=== PATIENT | male | born 1995 | race Caucasian/White ===

== ENCOUNTER → 2023-10-30 08:11 | Emergency (ER) | payer OTHER, SELFPAY ==
[2023-10-30 08:12] VITALS: BP 120/83
[2023-10-30 08:32] VITALS: BMI 23.0
[2023-10-30 08:36] VITALS: BP 134/76
--- NOTE | 2023-10-30 08:48 | ED.GENMED ---
History of Present Illness
General
Chief Complaint: Chest Pain
Source: patient
Time Seen by Provider: 10/30/23 08:32
History of Present Illness
History of Present Illness:
27-year-old male with no significant past medical history presenting the emergency department for evaluation after waking this morning and felt a little tightness around his chest so he decided to go outside to have a cigarette but this did not
relieve his symptoms so decided to come to the ER. On the way here patient states he had increasing chest tightness and palpitations prompting them to call EMS who brought the patient here for further evaluation. Upon arrival to the ER patient's
symptoms are fully resolved and he states he is feeling much better. Significant other states that patient did tell her that symptoms seem to be worse while he was standing. Patient denies any fevers, chills, rigors, nausea, vomiting, bowel
changes or urinary symptoms. Denies any history of similar. Social history was noted for tobacco/cigarette use as well as weekend drinking. Patient states he did not drink last night but did have a few alcoholic beverages on Tuesday.
Phy Exam
Physical Exam
Physical Exam:
GENERAL: Alert , in no apparent distress
EYE: conjunctiva clear
NECK: Supple, no significant adenopathy.
ENT: o/p clr, mmm.
CARDIAC: Regular rate and rhythm
LUNGS: Clear breath sounds bilaterally, no acute respiratory distress, no wheezes/rales/rhonchi
ABDOMEN: Soft, non-tender, non-distended
NEUROLOGICAL: Alert and oriented
SKIN: Warm and dry, skin intact.
MUSCULOSKELETAL: well perfused.
PSYCH: Normal and appropriate interaction.
Scores
Heart Failure Risk
Heart Failure Risk Score: Not Applicable
Heart Score for Chest Pain Patients
STEMI patient?: No
History: Slightly or Non-Suspicious
ECG: Normal
Age: </= 45 years
Risk Factors: 1 or 2 Risk Factors
Troponin: </= Normal Limit
Heart Score for Chest Pain Patients: 1
Heart Score Risk: 2.5% MACE over next 6 weeks
Withdrawal Assessment of Alcohol
Withdrawal Assessment Completed?: Not applicable
Course
Orders/Labs/Results
Orders:
Orders
10/30/23 08:16
EKG [Electrocardiogram (*1)] Urgent
Reason for Study: Chest Pain
EKG- Treatment ONCE
10/30/23 08:34
CMP [Comprehensive Metabolic Panel] Urgent
Complete Blood Count/With Diff Urgent
Troponin I Urgent
Abnormal Lab Results
10/30/23
08:34
RBC 4.66 L 10^6/uL
(4.70-6.10)
MCH 32.0 H pg
(27.0-31.0)
Immature Gran % 0.6 H %
(0-0.5)
Glucose 112 H mg/dl
(70-99)
10/30/23 08:34
10/30/23 08:34
Vital Signs
Initial and Last Documented VS:
Initial Vital Signs
Temp Pulse Resp BP Pulse Ox
99.0 F 84 19 120/83 99
10/30/23 08:12 10/30/23 08:12 10/30/23 08:12 10/30/23 08:12 10/30/23 08:12
Last Documented Vital Signs
Temp Pulse Resp BP Pulse Ox
99.0 F 67 10 134/76 98
10/30/23 08:12 10/30/23 08:45 10/30/23 08:45 10/30/23 08:36 10/30/23 08:45
MDM/Problems Addressed
Differential Diagnosis Includes:
anxiety, GERD, gastritis, i do not have concern for ACS
MDM/Problems Addressed:
27-year-old male presenting emergency department for evaluation of some chest tightness, palpitations and anxiousness. Symptoms fully resolved at time of arrival to the ER. He is hemodynamically stable in no acute distress. EKG is nonischemic.
Labs ordered by nursing and are also unremarkable. I suspect patient's alcohol and tobacco use likely playing a role and possible referred GI source in addition to some anxiety is the most likely cause of patient's symptoms.
*Pulse Oximetry
Patient hypoxic: no
*EKG
Interpreted by ED Provider?: Yes
Comparison EKG: no comparison EKG present
Heart Rate: 77
Rate: normal
Rhythm: sinus
[place]: normal axis
Ischemia: no ischemia
*[employer] Administrator Interpretation
Rate: normal
Rhythm: sinus
*Critical Care Note
Total Time (30-74mins, 75-104mins- exclusive of procedures): Not Applicable
Patient Management
Escalation/DeEscalation of care consider admission/obs:
Patient reporting symptoms remain resolved. He is continuously hemodynamically stable. Advise close follow-up with primary care provider. Advised avoidance of alcohol and bland diet for potential gastritis as cause of some pain/discomfort.
Advised patient can take Pepcid [id number] as well. Aware of return precautions to the ER.
ED Attending Note
-
Portions of this chart may have been created with voice recognition software.� Occasional wrong word or��sound alike� substitutions may have occurred due to the inherent limitations of voice recognition software.
Discharge Plan
Departure
Patient Disposition: Home (Routine Discharge)
Date of Disposition: 10/30/23
Time of Disposition: 09:30
Patient with high blood pressure during this ER visit?: No
Discharge Problem:
Palpitations
Instructions: Palpitations
Referrals:
Abdulaziz Rosenberg DO [Family Provider] -
Interventions
Interventions:
*Risk Screen - Suicide Last Done: 10/30/23 08:12
*General Assessment Last Done: 10/30/23 08:12
*Neglect/Abuse Screening Last Done: 10/30/23 08:12
ED- Fall Risk Assessment Last Done: 10/30/23 08:32
ED- Cardiac Assessment Last Done: 10/30/23 08:32
Discharge Date and Time
Print Language: HUNGARIAN
[2023-10-30 08:54] LABS: % Basophils 0.6 % (0-2); % Eosinophils 0.9 % (0-6); % Immature Granulocytes 0.6 % (0-0.5); % Lymphocytes 24.5 % (20.5-51.1); % Monocytes 6.6 % (1.7-9.3); % Neutrophils 66.8 % (42.2-75.2); Absolute Eosinophils 0.1 10^3/uL (0-0.7); Absolute Lymphocytes 1.6 10^3/uL (1.2-3.4); Absolute Monocytes 0.4 10^3/uL (0.1-0.6); Absolute Neutrophils 4.5 10^3/uL (1.4-6.5); Hematocrit 41.4 % (39.0-52.0); Hemoglobin 14.9 g/dL (13.0-18.0); Mean Corpuscular Volume 88.8 fL (80.0-94.0); Nucleated Red Blood Cells % 0 % (-); Platelet Count 256 10^3/uL (130-400); Red Blood Cell Count 4.66 10^6/uL (4.70-6.10); Red Cell Dist. Width 12.8 % (11.5-14.5); White Blood Cell Count 6.7 10^3/uL (4.8-10.8)
[2023-10-30 09:00] VITALS: BP 130/77
[2023-10-30 09:06] LABS: ALT (SGPT) 25 U/L (0-50); AST (SGOT) 30 U/L (17-59); Albumin 4.5 g/dl (3.5-5.0); Alkaline Phosphatase 53 U/L (38-126); Blood Urea Nitrogen 15 mg/dl (9-20); Calcium 9.5 mg/dl (8.4-10.2); Carbon Dioxide 24 mmol/L (22-30); Chloride 107 mmol/L (98-107); Estimated Creatinine Clearance > 125 ml/min; Glucose 112 mg/dl (70-99); Potassium 4.3 mmol/L (3.5-5.1); Sodium 138 mmol/L (135-145); Total Bilirubin 0.8 mg/dl (0.2-1.3); Total Protein 6.6 g/dl (6.3-8.2); eGFR > 60.00
[2023-10-30 09:17] LABS: Troponin I < 0.012 ng/ml
[2023-10-30 09:24] VITALS: BP 107/67
== END | disposition home or self-care (01) ==
LOC: EMR 08:11
PROVIDERS: Physician Assistant Medical; EMERGENCY PHYSICIAN Emergency Medicine; FAMILY PHYSICIAN Family Medicine
DX: R00.2 Palpitations (principal); F17.210 Nicotine dependence, cigarettes, uncomplicated
CPT/HCPCS: 99283; 80053; 84484; 85025; 93005